=== PATIENT | female | born 1995 | race African-American/Black ===

== ENCOUNTER 2017-02-05 14:54 | Emergency (ER) | payer OTHER ==
[~2017-02-05] VITALS: Ht 149.9 cm; Wt 64.9 kg
[~2017-02-05 14:54] MED LIST: ALTACE10 MG PO; APAP500 PO; BENADRYL25 MG PO; CETIRIZINE HCL5 MG PO; CIPROFLOXIN HC2.5 M1 OPHTHALMIC; CYCLOBENZAPRINE5 MG PO; DEPO-PROVE150 MG/1 M IM; NAPHCON-A EYE D15 ML OP; NEOMYC-POLYM-DEX5 ML OP; NORCO 5-325 TA1 EACH PO; PEPCID40 MG PO; PREDNISONE 20 M20 MG PO; PROGRAF1 MG; RAPAMUNE1 MG PO; TRAMADOL 50 MG50 MG PO; ZOFRAN ODT4 MG DISSOLVE; [UNRECOGNIZED DRUG - OTHER]
[2017-02-05 14:59] VITALS: BP 108/68
[2017-02-05] MEDS ORDERED: MEDROL DOSPAK21 TAB PO (16:02)
== END 2017-02-05 16:10 | disposition home or self-care (01) ==
LOC: ER 14:54
DX: O26.892 Other specified pregnancy related conditions, second trimester (principal); M54.31 Sciatica, right side; Z3A.15 15 weeks gestation of pregnancy

== ENCOUNTER 2017-05-11 13:07 | Emergency (ER) | payer OTHER ==
[~2017-05-11] VITALS: Ht 149.9 cm; Wt 66.2 kg
[~2017-05-11 13:07] MED LIST changes: +MEDROL DOSPAK21 TAB PO
[2017-05-11 16:28] VITALS: BP 105/59
== END 2017-05-11 16:28 | disposition short-term general hospital (02) ==
LOC: ER 13:07
DX: O60.03 Preterm labor without delivery, third trimester (principal); Z3A.29 29 weeks gestation of pregnancy; Z88.8 Allergy status to other drugs, medicaments and biological substances

== ENCOUNTER 2017-09-18 09:12 | Emergency (ER) | payer OTHER ==
[~2017-09-18] VITALS: Ht 157.5 cm; Wt 52.2 kg
[2017-09-18] MEDS ORDERED: PREDNISONE 20 M20 MG PO (09:48)
[2017-09-18] MEDS ORDERED: TESSALON PERLE100 MG PO (09:48)
[2017-09-18] MEDS ORDERED: VENTOLIN HFA 1818 GM INH (09:48)
== END 2017-09-18 10:40 | disposition home or self-care (01) ==
LOC: ER 09:12
DX: J40 Bronchitis, not specified as acute or chronic (principal); Z88.6 Allergy status to analgesic agent; Z88.8 Allergy status to other drugs, medicaments and biological substances

== ENCOUNTER 2017-12-09 15:39 | Emergency (ER) | payer OTHER ==
[~2017-12-09] VITALS: Ht 149.9 cm; Wt 62.6 kg
[~2017-12-09 15:39] MED LIST changes: +TESSALON PERLE100 MG PO; +VENTOLIN HFA 1818 GM INH
[2017-12-09] MEDS ORDERED: IBUPROFEN 600600 M1 PO (16:24)
[2017-12-09] MEDS ORDERED: ULTRAM 50MG TAB50 MG PO (16:24)
[2017-12-09 18:23] VITALS: BP 109/68
== END 2017-12-09 18:24 | disposition home or self-care (01) ==
LOC: ER 15:39
DX: K02.9 Dental caries, unspecified (principal)

== ENCOUNTER 2018-08-21 12:01 | Emergency (ER) | payer OTHER ==
[~2018-08-21] VITALS: Ht 149.9 cm; Wt 62.6 kg
[~2018-08-21 12:01] MED LIST changes: +IBUPROFEN 600600 M1 PO; +ULTRAM 50MG TAB50 MG PO
[2018-08-21 12:10] VITALS: BP 99/69
[2018-08-21] MEDS ORDERED: CLARITIN-D 121 EAC1 PO (13:29)
[2018-08-21] MEDS ORDERED: TESSALON PERLE100 MG PO (13:29)
== END 2018-08-21 13:40 | disposition home or self-care (01) ==
LOC: ER 12:01
DX: J06.9 Acute upper respiratory infection, unspecified (principal); Z88.6 Allergy status to analgesic agent; Z88.8 Allergy status to other drugs, medicaments and biological substances; Z94.4 Liver transplant status

== ENCOUNTER 2018-09-27 11:40 | Emergency (ER) | payer OTHER ==
[~2018-09-27] VITALS: Ht 149.9 cm; Wt 61.2 kg
[~2018-09-27 11:40] MED LIST changes: +CLARITIN-D 121 EAC1 PO
[2018-09-27] MEDS ORDERED: RAPAMUNE2 MG PO (11:48)
[2018-09-27 12:26] LABS: ABSOLUTE NEUTROPHILS 4.7 thou/uL (1.4-8.2); BASOPHILS 0.5 % (0.0-2.0); EOSINOPHILS 1.5 % (0.0-3.0); HEMATOCRIT 39.1 % (37.0-47.0); HEMOGLOBIN 13.3 gm/dL (12.0-15.0); LYMPHOCYTES 29.6 % (24.0-44.0); MCH 32.2 pg (26.0-34.0); MCV 94.8 fL (80.0-100.0); MONOCYTES 9.7 % (1.0-8.0); PLATELET COUNT 244 thou/uL (150-400); POLYS 58.7 % (36.0-66.0); RBC 4.12 mil/uL (4.20-5.00); RDW 13.5 % (10.5-14.5)
[2018-09-27 12:30] LABS: CALCIUM 9.3 mg/dL (8.5-10.1); CREATININE 0.7 mg/dL (0.6-1.0); POTASSIUM 3.9 mmol/L (3.5-5.1)
[2018-09-27 12:34] LABS: URINE BILIRUBIN NEGATIVE (Negative); URINE BLOOD 2+ (Negative); URINE CLARITY CLEAR; URINE COLOR YELLOW; URINE GLUCOSE-RANDOM* NEGATIVE (Negative); URINE KETONES NEGATIVE (Negative); URINE LEUKOCYTES-REFLEX NEGATIVE (Negative); URINE NITRITE-REFLEX NEGATIVE (Negative); URINE PROTEIN (DIPSTICK) NEGATIVE (Negative); URINE SPECIFIC GRAVITY >= 1.030 (1.005-1.035); URINE UROBILINOGEN 0.2 E.U./dl (0.2-1.0)
[2018-09-27 12:36] LABS: ALBUMIN 3.8 g/dL (3.4-5.0); TOTAL BILIRUBIN 0.3 mg/dL (<0.1-1.0); TOTAL PROTEIN 7.7 g/dL (6.4-8.2)
[2018-09-27 12:45] LABS: CASTS None Seen /LPF (None Seen); CRYSTALS None Seen /LPF (None Seen); SQUAMOUS 4-10 Moderate /LPF (0-3)
[2018-09-27 12:46] LABS: APTT 25.4 Seconds (24.5-32.8); PROTIME 10.7 Seconds (9.3-11.4)
[2018-09-27 12:46] LABS: URINE RBC 0-2 Rare /HPF (0-2); URINE WBC-REFLEX 0-5 Rare /HPF (0-5)
[2018-09-27 12:47] LABS: MUCUS 4-6 Moderate strn/LPF (None Seen)
[2018-09-27 14:11] VITALS: BP 103/64
== END 2018-09-27 14:12 | disposition home or self-care (01) ==
LOC: ER 11:40
PROVIDERS: Emergency Medicine
DX: R10.9 Unspecified abdominal pain (principal); Z88.6 Allergy status to analgesic agent; Z88.8 Allergy status to other drugs, medicaments and biological substances; Z94.4 Liver transplant status

== ENCOUNTER 2019-04-27 20:33 | Emergency (ER) | payer OTHER ==
[~2019-04-27] VITALS: Ht 149.9 cm; Wt 63.5 kg
[~2019-04-27 20:33] MED LIST changes: +RAPAMUNE2 MG PO
[2019-04-27 21:09] LABS: URINE BILIRUBIN NEGATIVE (Negative); URINE BLOOD NEGATIVE (Negative); URINE CLARITY CLEAR; URINE COLOR YELLOW; URINE GLUCOSE-RANDOM* NEGATIVE (Negative); URINE KETONES NEGATIVE (Negative); URINE LEUKOCYTES-REFLEX NEGATIVE (Negative); URINE NITRITE-REFLEX NEGATIVE (Negative); URINE PROTEIN (DIPSTICK) NEGATIVE (Negative); URINE SPECIFIC GRAVITY 1.025 (1.005-1.035)
[2019-04-27 21:24] LABS: HEMATOCRIT 38.9 % (37.0-47.0); HEMOGLOBIN 12.9 gm/dL (12.0-15.0); MCH 31.6 pg (26.0-34.0); MCHC 33.2 g/dL (28.0-37.0); MCV 95.1 fL (80.0-100.0); PLATELET COUNT 280 thou/uL (150-400); RDW 12.7 % (10.5-14.5); WBC 9.3 thou/uL (4.0-11.0)
[2019-04-27 21:33] LABS: CREATININE 0.7 mg/dL (0.6-1.0)
[2019-04-27 21:40] LABS: ALBUMIN 3.9 g/dL (3.4-5.0); TOTAL BILIRUBIN 0.2 mg/dL (<0.1-1.0); TOTAL PROTEIN 7.6 g/dL (6.4-8.2)
[2019-04-27 21:45] LABS: ABSOLUTE NEUTROPHILS 4.4 thou/uL (1.4-8.2)
[2019-04-27] MEDS ORDERED: MIRALAX17 GM PO (23:03)
[2019-04-28] MEDS ORDERED: TRAMADOL 50 MG50 MG PO (01:06)
[2019-04-28 01:14] VITALS: BP 101/60
== END 2019-04-28 01:16 | disposition home or self-care (01) ==
LOC: ER 20:33
PROVIDERS: Physician Assistant
DX: K46.9 Unspecified abdominal hernia without obstruction or gangrene (principal); K59.00 Constipation, unspecified; Z94.4 Liver transplant status; Z88.6 Allergy status to analgesic agent; Z88.8 Allergy status to other drugs, medicaments and biological substances

== ENCOUNTER 2019-07-01 08:26 | Emergency (ER) | payer OTHER ==
[~2019-07-01] VITALS: Ht 149.9 cm; Wt 62.1 kg
[~2019-07-01 08:26] MED LIST changes: +MIRALAX17 GM PO
[2019-07-01 08:27] VITALS: BP 101/70
[2019-07-01] MEDS ORDERED: RAPAMUNE2 MG PO (08:36)
[2019-07-01] MEDS ORDERED: ONDANSETRON ODT8 MG PO (10:18)
== END 2019-07-01 09:20 | disposition left against medical advice (07) ==
LOC: ER 08:26
DX: J06.9 Acute upper respiratory infection, unspecified (principal); R11.2 Nausea with vomiting, unspecified; Z92.25 Personal history of immunosuppression therapy; Z88.6 Allergy status to analgesic agent

== ENCOUNTER 2019-10-20 16:53 | Emergency (ER) | payer OTHER ==
[~2019-10-20] VITALS: Ht 149.9 cm; Wt 59.0 kg
[~2019-10-20 16:53] MED LIST changes: +ONDANSETRON ODT8 MG PO
[2019-10-20 17:25] LABS: URINE BILIRUBIN NEGATIVE (Negative); URINE BLOOD NEGATIVE (Negative); URINE CLARITY CLEAR; URINE COLOR YELLOW; URINE GLUCOSE-RANDOM* NEGATIVE (Negative); URINE KETONES NEGATIVE (Negative); URINE LEUKOCYTES-REFLEX TRACE (Negative); URINE NITRITE-REFLEX NEGATIVE (Negative); URINE PROTEIN (DIPSTICK) NEGATIVE (Negative); URINE UROBILINOGEN 0.2 E.U./dl (0.2-1.0)
[2019-10-20 17:39] LABS: ABSOLUTE NEUTROPHILS 6.3 thou/uL (1.4-8.2); BASOPHILS 0.3 % (0.0-2.0); HEMATOCRIT 40.6 % (37.0-47.0); HEMOGLOBIN 13.7 gm/dL (12.0-15.0); LYMPHOCYTES 16.1 % (24.0-44.0); MCH 31.6 pg (26.0-34.0); MCHC 33.8 g/dL (28.0-37.0); MCV 93.5 fL (80.0-100.0); MONOCYTES 10.2 % (1.0-8.0); PLATELET COUNT 274 thou/uL (150-400); POLYS 72.4 % (36.0-66.0); RBC 4.34 mil/uL (4.20-5.00); RDW 12.8 % (10.5-14.5); WBC 8.6 thou/uL (4.0-11.0)
[2019-10-20 17:49] LABS: CALCIUM 9.2 mg/dL (8.5-10.1); CREATININE 0.6 mg/dL (0.6-1.0); POTASSIUM 3.7 mmol/L (3.5-5.1)
[2019-10-20 17:55] LABS: ALBUMIN 4.1 g/dL (3.4-5.0); TOTAL BILIRUBIN 0.7 mg/dL (<0.1-1.0); TOTAL PROTEIN 8.2 g/dL (6.4-8.2)
[2019-10-20] MEDS ORDERED: NORCO 5-325 TA1 EAC1 PO (18:41)
[2019-10-20 18:55] VITALS: BP 98/59
== END 2019-10-20 19:03 | disposition home or self-care (01) ==
LOC: ER 16:53
PROVIDERS: Physician Assistant
DX: K43.9 Ventral hernia without obstruction or gangrene (principal); Z94.4 Liver transplant status; Z88.8 Allergy status to other drugs, medicaments and biological substances; Z79.899 Other long term (current) drug therapy

== ENCOUNTER 2020-10-24 19:13 | Emergency (ER) | payer OTHER ==
[~2020-10-24] VITALS: Ht 149.9 cm; Wt 59.0 kg
[~2020-10-24 19:13] MED LIST changes: +NORCO 5-325 TA1 EAC1 PO
[2020-10-24 22:05] VITALS: BP 105/64
== END 2020-10-24 22:06 | disposition home or self-care (01) ==
LOC: ER 19:13
DX: R51.9 Headache, unspecified (principal); Z79.899 Other long term (current) drug therapy; Z88.8 Allergy status to other drugs, medicaments and biological substances